=== PATIENT | female | born 1990 | race Caucasian/White ===

== ENCOUNTER 2018-07-24 17:36 | Outpatient (REF) | payer BC, SELFPAY ==
[2018-07-24 21:03] LABS: Bacteria Few HPF (Negative); Epithelial Cells Moderate HPF (Negative); Other Cells Rare Transitional (Negative); RBC Negative (0-2); WBC Negative HPF (0-5)
[2018-07-24 21:04] LABS: C & S Indicated? C&S Done As Ordered; Casts Negative LPF (Negative); Crystals Negative HPF (Negative); Mucus Negative (Negative)
== END 2018-07-24 17:37 ==
LOC: NCHCN 17:36
PROVIDERS: PCP Internal Medicine; Visit Provider Nurse Practitioner Family
DX: N39.0 Urinary tract infection, site not specified (principal)
CPT/HCPCS: 81015; 87086

== ENCOUNTER 2019-03-02 14:10 | Outpatient (REF) | payer BC, SELFPAY | END 2019-03-02 14:30 | LOC: NCHCN 14:10 | PROVIDERS: PCP Internal Medicine; Visit Provider Nurse Practitioner Family | DX: N39.0 Urinary tract infection, site not specified (principal) | CPT/HCPCS: 87077; 87086; 87186 ==

== ENCOUNTER 2020-09-20 17:00 | Outpatient (REF) | payer BC, SELFPAY ==
[2020-09-24 04:29] LABS: Patient Race White; SARS-CoV-2 RNA Undetected (Undetected); SARS-CoV-2 Specimen Source Nasal
[2020-09-26 12:14] LABS: Chlamydia Result Negative (Negative); GC Result Negative (Negative)
== END 2020-09-20 17:20 ==
LOC: NCHCN 17:00
PROVIDERS: PCP Nurse Practitioner Family; Visit Provider Family Medicine
DX: Z11.59 Encounter for screening for other viral diseases (principal); R30.0 Dysuria
CPT/HCPCS: 87491; 87591; U0003

== ENCOUNTER 2021-01-17 09:38 | Outpatient (REF) | payer BC, SELFPAY ==
--- NOTE | 2021-01-17 08:15 | PAPFT_PTH ---
PATIENT: TANNER HAYES LOC: [facility]#:[id number] AGE/SX: 30/F ROOM: RE01/17/[address]: Stefany Malloy : 1990 BED: DIS: 01/17/2021 SPEC #: [id number] RECD: 01/17/21 13:09 STATUS: JATIN WEAVER #: [id number] KAMILA: 01/17/21 08:[address]: Stefany Malloy DEPT: [facility] Cytology RECD BY: Christiana Phelan Tissues: 1 - CX/ENDOCX FOR PAP SMEARS Procedures: PAP THIN PREP/[facility] Screening HPV DNA PROBE Comments: [id number] (CHLAMYDIA/GC)
[2021-01-19 07:50] LABS: Chlamydia Result Negative (Negative); GC Result Negative (Negative)
== END 2021-01-17 09:39 | disposition home or self-care (01) ==
LOC: NCHCN 09:38
PROVIDERS: PCP Nurse Practitioner Family; Visit Provider Nurse Practitioner Family
DX: Z11.3 Encounter for screening for infections with a predominantly sexual mode of transmission (principal); Z12.4 Encounter for screening for malignant neoplasm of cervix; Z11.51 Encounter for screening for human papillomavirus (HPV)
CPT/HCPCS: 87491; 87591; 88142; 87624

== ENCOUNTER 2021-01-17 10:00 | Outpatient (REF) | payer BC, SELFPAY ==
[2021-01-17 13:19] LABS: Abs Immature Grans 0.02 10^3/uL (0.0-0.06); Absolute Basophil Count 0.05 10^3/uL (0.0-0.2); Absolute Eosinophil Count 0.21 10^3/uL (0.0-0.7); Absolute Lymphocyte Count 1.67 10^3/uL (1.2-3.4); Absolute Monocyte Count 0.71 10^3/uL (0.1-0.8); Absolute Neutrophil Count 2.92 10^3/uL (1.2-6.7); Basophils % 0.9; Eosinophils % 3.8; HCT 40.8 % (36.0-46.0); HGB 13.5 g/dL (11.2-15.7); Immature Grans % 0.4; Lymphocytes % 29.9; MCH 30.5 pg (27.0-33.0); MCHC 33.1 % (32.0-36.0); MCV 92.3 fL (80-95); MPV 10.1 fL (8.0-11.0); Monocytes % 12.7; Neutrophils % 52.3; Nucleated RBC 0 %; Platelet Count 241 10^3/uL (130-400); RBC 4.42 10^6/uL (3.93-5.22); RDW 11.7 % (11.7-14.6); RDW-SD 39.6 fL; WBC 5.58 10^3/uL (4.4-10.8)
[2021-01-17 13:43] LABS: Anion Gap 10.4 mmol/L (3-11); BUN 10 mg/dL (7-18); CO2 25.6 mmol/L (21.0-32.0); CREATININE 0.6 mg/dL (0.55-1.02); Calcium 9.3 mg/dL (8.5-10.1); Chloride 105 mmol/L (98-107); Glucose 103 mg/dL (74-106); Potassium 4.2 mmol/L (3.5-5.1); Sodium 141 mmol/L (136-145); TSH (W/Ref FT4) 3.31 uIU/mL (0.36-3.74)
== END 2021-01-17 10:01 | disposition home or self-care (01) ==
LOC: NCHCN 10:00
PROVIDERS: PCP Nurse Practitioner Family; Visit Provider Nurse Practitioner Family
DX: K92.1 Melena (principal); E07.89 Other specified disorders of thyroid
CPT/HCPCS: 80048; 84443; 85025

== ENCOUNTER 2021-01-26 15:57 | Outpatient (REF) | payer BC, SELFPAY ==
[2021-01-28 10:47] LABS: Campylobacter PCR Negative (Negative); Salmonella PCR Negative (Negative); Shiga Toxin PCR Negative (Negative); Shigella/Enteroinvasive Ecoli Negative (Negative)
== END 2021-01-26 15:58 | disposition home or self-care (01) ==
LOC: NCHCN 15:57
PROVIDERS: PCP Nurse Practitioner Family; Visit Provider Nurse Practitioner Family
DX: Z00.00 Encounter for general adult medical examination without abnormal findings (principal); K92.1 Melena
CPT/HCPCS: 87329; 87505; 87177